=== PATIENT | male | born 2000 | race Hispanic/Latino ===

== ENCOUNTER 2020-10-30 04:02 | Emergency (ER) | payer OTHER ==
[2020-10-30] MEDS ORDERED: IBUPROFEN 600 MG TAB PO ONE (04:19)
[2020-10-30] MEDS ORDERED: ACETAMINOPHEN 500 MG TAB PO ONE (04:19)
[2020-10-30 04:21] VITALS: BP 155/116
--- NOTE | 2020-10-30 04:59 | XRay Report ---
LEFT HAND 3 VIEWS INDICATION / CLINICAL INFORMATION: Pain - fall COMPARISON: None available. FINDINGS: BONES / JOINT(S): There is a subtle lucency in the radial styloid process concerning for a nondisplac ed fracture. No other fractures are seen. No significant arthritis. SOFT TISSUES: No significant abnormality. ADDITIONAL FINDINGS: None. Signer Name: Timur Tuttle MD Signed: 10/30/2020 4:54 AM Workstation Name: [id number]
[2020-10-30] MEDS ORDERED: HYDROcodone/ACETAMINOPHEN 5-325 MG TAB PO ONE (05:13)
[2020-10-30] MEDS ORDERED: ONDANSETRON 4 MG ODT TAB PO ONE (05:13)
--- NOTE | 2020-10-30 05:13 | Emergency Department Report ---
ED Upper Extremity Inj HPI - General Chief Complaint: Extremity Injury, Upper Stated Complaint: LEFT THUMB/HAND INJURY WORKMANS COMP Source: patient Mode of arrival: Ambulatory Limitations: No Limitations - History of Present Illness Initial Comments: Patient is a 20-year-old male with no past medical history presents to the ED who presents to the ED with complaint of acute onset persistent severe left wrist pain, left hand and left thumb pain after he slipped and fell down on landing on the left hand about 2 hours ago. Patient states that he is unable to perform any active range of motion of the left hand or left arm because of pain. Patient denies head or neck injuries, dizziness, syncope, nausea and vomiting, abdominal pain, headache, back pain, hip pain, chest pain, shortness of breath, numbness and tingling or weakness of left hand or loss of consciousness. MD Complaint: Injury to:: left, wrist, hand, finger (left thumb pain) -: Sudden, hour(s) (2) Other Extremity Injury: Hand: Left (left hand and thumb pain), Wrist: Left (left) Other Injuries: none Handedness: left Severity scale (0 -10): 8 Improves With: rest Context: fall, direct blow, injury Associated Symptoms: denies other symptoms. denies: weakness, numbness, neck pain, suspects foreign body, nausea/vomiting, heard/felt popping sensat, other - Related Data Previous Rx's Medication Instructions Recorded Last Taken Type HYDROcodone/APAP 5-325 [Check 1 each PO Q6HR PRN #12 tablet 10/30/20 Unknown Rx 5/325] Ibuprofen [Motrin] 600 mg PO Q8H PRN #30 tablet 10/30/20 Unknown Rx Allergies Allergy/AdvReac Type Severity Reaction Status Date / Time No Known Allergies Allergy Unverified 10/30/20 04:15 ED Review of Systems ROS: Stated complaint: LEFT THUMB/HAND INJURY [employer]S COMP Other details as noted in HPI Constitutional: denies: chills, fever Eyes: denies: eye pain, eye discharge, vision change ENT: denies: ear pain, throat pain Respiratory: denies: cough, shortness of breath, wheezing Cardiovascular: denies: chest pain, palpitations Endocrine: no symptoms reported Gastrointestinal: denies: abdominal pain, nausea, diarrhea Genitourinary: denies: urgency, dysuria, frequency, hematuria, testicular pain, testicular mass, other Musculoskeletal: joint swelling, arthralgia (Left wrist and left hand pain). denies: back pain Skin: denies: rash, lesions Neurological: denies: headache, weakness, paresthesias Psychiatric: denies: anxiety, depression Hematological/Lymphatic: denies: easy bleeding, easy bruising ED Past Medical Hx - Social History Smoking Status: Never Smoker Substance Use Type: None - Medications Home Medications: Home Medications Medication Instructions Recorded Confirmed Last Taken Type HYDROcodone/APAP 5-325 [Check 1 each PO Q6HR PRN #12 tablet 10/30/20 Unknown Rx 5/325] Ibuprofen [Motrin] 600 mg PO Q8H PRN #30 tablet 10/30/20 Unknown Rx ED Physical Exam - General Limitations: No Limitations General appearance: alert, in no apparent distress - Head Head exam: Present: atraumatic, normocephalic, normal inspection - Eye Eye exam: Present: normal appearance, PERRL, EOMI Pupils: Present: normal accommodation - ENT ENT exam: Present: normal orophraynx, mucous membranes dry, mucous membranes moist, normal external ear exam - Neck Neck exam: Present: normal inspection. Absent: lymphadenopathy - Respiratory Respiratory exam: Present: normal lung sounds bilaterally. Absent: respiratory distress, wheezes, rales, chest wall tenderness, accessory muscle use, decreased breath sounds, prolonged expiratory - Cardiovascular Cardiovascular Exam: Present: normal rhythm, tachycardia, normal heart sounds. Absent: systolic murmur, diastolic murmur, rubs, gallop - GI/Abdominal GI/Abdominal exam: Present: soft, normal bowel sounds. Absent: tenderness, guarding, hyperactive bowel sounds, hypoactive bowel sounds, organomegaly, pulsatile mass - Extremities Exam Extremities exam: Present: normal inspection, tenderness (Palpable left hand and wrist tenderness with limited range of motion due to pain), normal capillary refill, joint swelling. Absent: calf tenderness, other - Back Exam Back exam: Present: normal inspection, full ROM. Absent: tenderness, CVA tenderness (R), muscle spasm, paraspinal tenderness, vertebral tenderness - Neurological Exam Neurological exam: Present: alert, oriented X3, CN II-XII intact, normal gait - Psychiatric Psychiatric exam: Present: normal affect, normal mood, anxious - Skin Skin exam: Present: warm, dry, intact, normal color. Absent: rash ED Course Vital Signs 10/30/20 10/30/20 04:19 05:55 Temperature 98.2 F Pulse Rate 117 H 99 H Respiratory 16 18 Rate Blood Pressure 155/116 O2 Sat by Pulse 97 99 Oximetry ED Medical Decision Making - Radiology Data Radiology results: report reviewed, image reviewed Findings [facility] [address] [place] [address] XRay Report Signed Patient: TESS LAM MR#: [id number] : 2000 Acct:[id number] Age/Sex: 20 / M ADM Date: 10/30/20 Loc: ED Attending Dr: Ordering Physician: ANKUSH BATRES Date of Service: 10/30/20 Procedure(s): XR hand 3+V LT Accession Number(s): [id number] cc: ANKUSH BATRES Fluoro Time In Minutes: LEFT HAND 3 VIEWS INDICATION / CLINICAL INFORMATION: Pain - fall COMPARISON: None available. FINDINGS: BONES / JOINT(S): There is a subtle lucency in the radial styloid process concerning for a nondisplaced fracture. No other fractures are seen. No significant arthritis. SOFT TISSUES: No significant abnormality. ADDITIONAL FINDINGS: None. Signer Name: Timur Tuttle MD Signed: 10/30/2020 4:54 AM Workstation Name: [id number] Transcribed By: SS Dictated By: Timur Tuttle MD Electronically Authenticated By: Timur Tuttle MD Signed Date/Time: 10/30/20453 DD/ 1 TD/TT: - Medical Decision Making This is a 20-year-old male with no past medical history presents to the ED who presents to the ED with complaint of acute onset persistent severe left wrist pain, left hand and left thumb pain after he slipped and fell down on landing on the left hand about 2 hours ago. Patient states that he is unable to perform any active range of motion of the left hand or left arm because of pain. In the ED, patient is alert and oriented x3 and is not in distress but appears to be in pain, anxious and tachycardic in triage. Patient was treated for pain in the ED and left hand x-ray showed a subtle lucency in the radial styloid process concerning for a nondisplaced fracture. No other fractures are seen. No significant arthritis. The left hand and wrist was splinted with wrist splint, and on reevaluation, patient's pain is well controlled medications. Patient will discharge home on medications for pain and advised to follow-up with orthopedic surgeon on-call Dr. Cooper for further evaluation. Patient was discharged home on medications and advised to return to the ED immediately if symptoms get worse. - Differential Diagnosis Hand fracture; hand contusion; hand sprain; Critical care attestation.: If time is entered above; I have spent that time in minutes in the direct care of this critically ill patient, excluding procedure time. ED Disposition Clinical Impression: Nondisplaced fracture of left radial styloid process, initial encounter for closed fracture, Contusion of left wrist, initial encounter Sprain of left hand Qualifiers: Encounter type: initial encounter Qualified Code(s): S63.92XA - Sprain of unspecified part of left wrist and hand, initial encounter Disposition: TO HOME OR SELFCARE Is pt being admited?: No Does the pt Need Aspirin: No Condition: Stable Instructions: Cast or Splint Care, Adult, [id number], Finger Sprain, Adult, [id number], Contusion, [id number], Radial Fracture Rehab-SportsMed, Wrist Fracture Treated With Immobilization, [id number] Additional Instructions: The left hand x-ray shows a small fracture on the left distal radius at the styloid region. Therefore take pain medication as needed, follow-up with orthopedic surgeon physician Dr. Cooper in 2 to 3 days for reevaluation. Return to the ED immediately if symptoms get worse. Prescriptions: Ibuprofen [Motrin] 600 mg PO Q8H PRN #30 tablet PRN Reason: Pain HYDROcodone/APAP 5-325 [Check 5/325] 1 each PO Q6HR PRN #12 tablet PRN Reason: Pain Referrals: TAVO COOPER MD [Staff Physician] - 24 Hours Time of Disposition: 05:30 Print Language: DIVEHI
== END 2020-10-30 05:56 | disposition home or self-care (01) ==
LOC: ED 04:02
DX: S52.515A Nondisplaced fracture of left radial styloid process, initial encounter for closed fracture (principal); Z79.1 Long term (current) use of non-steroidal anti-inflammatories (NSAID); Z79.899 Other long term (current) drug therapy; W01.0XXA Fall on same level from slipping, tripping and stumbling without subsequent striking against object, initial encounter; Y93.89 Activity, other specified; Y92.89 Other specified places as the place of occurrence of the external cause; Y99.8 Other external cause status
CPT/HCPCS: Q0162